=== PATIENT | female | born 1940 | race Caucasian/White ===

== ENCOUNTER 2021-10-01 21:35 | Emergency (ER) | payer MEDICARE, BC ==
[2021-10-01 22:47] LABS: Bilirubin Neg (Negative); Blood, Urine 25 (Negative); Clarity Clear (Clear); Glucose, Urine (Dipstick) Normal (Negative); Ketone, Urine Negative (Negative); Leukocyte 500 (Negative); Nitrite Negative (Negative); Protein, Urine (Dipstick) Negative (Neg-Trace); Urobilinogen Normal mg/dL (Less than 2); pH, Urine 6.5 (5.0-9.0)
[2021-10-01 23:01] LABS: Bacteria/HPF None Seen HPF (None Seen); RBC/HPF 0-3 HPF (0-3); Squamous Epithelial 0-3 HPF (0-3)
== END 2021-10-01 23:18 | disposition home or self-care (01) ==
LOC: CSHERS 21:35
DX: N39.0 Urinary tract infection, site not specified (principal); E03.9 Hypothyroidism, unspecified
CPT/HCPCS: 71045; 81003; 81015; 87086

== ENCOUNTER 2021-10-14 12:44 | Outpatient (CLI) | payer MEDICARE, BC | END 2021-10-14 12:45 | disposition home or self-care (01) | LOC: CSHULT 12:44 | PROVIDERS: ATTEND Family Medicine | DX: R10.9 Unspecified abdominal pain (principal); G89.29 Other chronic pain; M54.50 Low back pain, unspecified; M54.6 Pain in thoracic spine; N13.30 Unspecified hydronephrosis; M47.816 Spondylosis without myelopathy or radiculopathy, lumbar region; M47.814 Spondylosis without myelopathy or radiculopathy, thoracic region | CPT/HCPCS: 72072; 72100; 76770 ==

== ENCOUNTER 2021-10-21 11:53 | Outpatient (CLI) | payer MEDICARE, BC ==
[2021-10-21] MEDS ORDERED: Iopamidol 300 61% 100 ML VIAL FS ONE (12:49)
== END 2021-10-21 11:54 | disposition home or self-care (01) ==
LOC: CSHCT 11:53
PROVIDERS: ATTEND Family Medicine
DX: N13.30 Unspecified hydronephrosis (principal); N13.1 Hydronephrosis with ureteral stricture, not elsewhere classified
CPT/HCPCS: 74178; Q9967

== ENCOUNTER 2023-01-20 13:25 | Outpatient (CLI) | payer MEDICARE, BC | END 2023-01-20 13:26 | disposition home or self-care (01) | LOC: CSHMAMMO 13:25 | PROVIDERS: ATTEND Family Medicine | DX: Z12.31 Encounter for screening mammogram for malignant neoplasm of breast (principal); Z91.89 Other specified personal risk factors, not elsewhere classified | CPT/HCPCS: 77063; 77067 ==

== ENCOUNTER 2024-12-14 09:28 | Outpatient (CLI) | payer MEDICARE, BC ==
[2024-12-14 10:08] LABS: Estimated GFR - POC 56.0
== END 2024-12-14 09:29 | disposition home or self-care (01) ==
LOC: CSHCT 09:28
PROVIDERS: ATTEND Internal Medicine
DX: R79.1 Abnormal coagulation profile (principal); R06.02 Shortness of breath
CPT/HCPCS: 36415; 71275; 82565